=== PATIENT | female | born 1960 | race African-American/Black ===

== ENCOUNTER 2023-01-09 12:35 | Emergency (ER) | payer OTHER ==
[~2023-01-09] VITALS: Ht 167.6 cm; Wt 88.5 kg
[2023-01-09] MEDS ORDERED: METOCLOPRAMIDE HCL 10 MG/2 ML VIAL IV ONE (13:00)
[2023-01-09] MEDS ORDERED: HYDROMORPHONE 1 MG/1 ML DISP.SYRIN IV ONE (13:00)
[2023-01-09] MEDS ORDERED: IV NORMAL SALINE 1000 ML BAG IV ONE (13:00)
--- NOTE | 2023-01-09 13:00 | NUR ---
Pt states she is constipated and just wants an enema. Pt refused EKG, saline lock, blood draw, notified.
[2023-01-09] MEDS ORDERED: MINERAL OIL FLEET ENEMA 133 ML BOTTLE RC ONE ×2 (13:23→13:30)
[2023-01-09 13:39] LABS: *BILIRUBIN,URIN NEGATIVE (NEGATIVE); *BLOOD, URINE NEGATIVE (NEGATIVE); *CLARITY,URINE CLEAR (CLEAR); *COLOR,URINE YELLOW (YELLOW); *KETONES,URINE NEGATIVE (NEGATIVE); *UROBILINOGEN,URINE 0.2 E.U./dl (NORMAL); LEUKOCYTE ESTERASE ,URINE 2+ (NEGATIVE); NITRITE, URINE NEGATIVE (NEGATIVE); PH,URINE 6.5 (5.0-8.0); UGLUCOSE NEGATIVE (NEGATIVE)
[2023-01-09 14:13] LABS: RBC,URINE NONE SEEN /HPF (0-3)
[2023-01-09 14:14] LABS: BACTERIA,URINE MODERATE /HPF (NONE SEEN); SQUAMOUS EPITHELIAL CELL,UR FEW /HPF (NONE SEEN)
[2023-01-09 14:20] LABS: *OCCULT BLOOD STOOL NEGATIVE (NEGATIVE)
[2023-01-09] MEDS ORDERED: BISA10SU61 RC (16:16)
--- NOTE | 2023-01-09 16:29 | NUR ---
Patient discharged to home in stable condition. Written and verbal after care instructions given. Patient verbalizes understanding of instructions. Stressed follow up or return to ER for worsening s/s.
[2023-01-09 17:10] VITALS: BP 132/72; TEMP 97.8; O2SAT 98
== END 2023-01-09 17:10 | disposition home or self-care (01) ==
LOC: ER 12:35
DX: K56.41 Fecal impaction (principal); C50.911 Malignant neoplasm of unspecified site of right female breast; Z87.891 Personal history of nicotine dependence; Z88.5 Allergy status to narcotic agent; Z88.2 Allergy status to sulfonamides; Z88.8 Allergy status to other drugs, medicaments and biological substances
CPT/HCPCS: 93005; A4663